=== PATIENT | male | born 2000 | race Caucasian/White ===

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

== ENCOUNTER → 2024-12-14 | Outpatient (CLI) | payer OTHER ==
[~2024-12-14] MED LIST changes: +HYDR-3715 PO; -NORCOTAB PO
== END ==
LOC: M RAD 10:34
PROVIDERS: ATTEND Nurse Practitioner Family
DX: M25.561 Pain in right knee (principal); S76.111S Strain of right quadriceps muscle, fascia and tendon, sequela